=== PATIENT | male | born 1985 | race Caucasian/White ===

== ENCOUNTER 2017-05-28 16:25 | Emergency (ER) | payer SELFPAY ==
[2017-05-28 16:32] VITALS: BP 155/89
[2017-05-28] MEDS ORDERED: LIDOCAINE 1% INJ-PF (10 MG/ML) 30 ML SDV INJ ONE (16:47)
--- NOTE | 2017-05-28 17:14 | ER Document Report ---
ED Skin Rash/Insect Bite/Abscs - General Chief Complaint: Abscess Stated Complaint: ABSCESS TO TOP OF RIGHT HAND Time Seen by Provider: 05/28/17 16:41 Mode of Arrival: Ambulatory Information source: Patient Notes: Patient is a 31-year-old male who presents to the ER today for abscess to his right hand 3 days. Patient states that it has gotten more painful, swollen, red since that time. He denies any history of MRSA. States that he used to be an IV drug user but he does not know why he keeps getting abscesses now that he does not do IV drugs. He does have psoriasis and he thinks that that may be the reason. He denies any fevers or chills. TRAVEL OUTSIDE OF THE [place] IN LAST 30 DAYS: No - Related Data Allergies/Adverse Reactions: No Known Allergies Allergy (Verified 05/28/17 16:30) Past Medical History - General Information source: Patient - Social History Smoking Status: Current Every Day Smoker Chew tobacco use (# tins/day): - 30 Frequency of alcohol use: None Drug Abuse: None Family History: Reviewed & Not Pertinent Endocrine Medical History: Denies: Hx Diabetes Mellitus Type 1, Hx Diabetes Mellitus Type 2 Renal/ Medical History: Denies: Hx Peritoneal Dialysis Skin Medical History: Reports Hx Psoriasis Surgical Hx: Negative - Immunizations Hx Diphtheria, Pertussis, Tetanus Vaccination: Yes Review of Systems - Review of Systems Constitutional: No symptoms reported EENT: No symptoms reported Cardiovascular: No symptoms reported Respiratory: No symptoms reported Gastrointestinal: No symptoms reported Genitourinary: No symptoms reported Male Genitourinary: No symptoms reported Musculoskeletal: No symptoms reported Skin: See HPI Hematologic/Lymphatic: No symptoms reported Neurological/Psychological: No symptoms reported Physical Exam - Vital signs Vitals: Temp Pulse Resp BP Pulse Ox 97.7 F 90 18 155/89 H 97 05/28/17 16:31 05/28/17 16:31 05/28/17 16:31 05/28/17 16:31 05/28/17 16:31 - Notes Notes: PHYSICAL EXAMINATION: GENERAL: Well-appearing and in no acute distress. HEAD: Atraumatic, normocephalic. EYES: Pupils equal round and reactive to light, extraocular movements intact, sclera anicteric, conjunctiva are normal. NECK: Normal range of motion, supple without lymphadenopathy LUNGS: CTAB and equal. No wheezes rales or rhonchi. HEART: Regular rate and rhythm without murmurs EXTREMITIES: Normal range of motion, no pitting edema. No cyanosis. NEUROLOGICAL: Cranial nerves grossly intact. Normal sensory/motor exams. PSYCH: Normal mood, normal affect. SKIN: Warm, Dry, normal turgor, 3 cm in diameter abscess, erythematous, fluctuant to the dorsal right hand, tender to palpation, no drainage Course - Vital Signs Vital signs: Temp Pulse Resp BP Pulse Ox 97.7 F 90 18 155/89 H 97 05/28/17 16:31 05/28/17 16:31 05/28/17 16:31 05/28/17 16:31 05/28/17 16:31 Procedures - Incision and Drainage Right Dorsal Hand Time completed: 17:13 Type: Simple Anesthetic type: 1% Lidocaine mL's of anesthetic: 2 Blade size: 11 I&D procedure: Betadine prep applied Incision Method: Incision made by scalpel Amount/type of drainage: pus and blood Discharge - Discharge Clinical Impression: Abscess, hand Condition: Stable Disposition: HOME, SELF-CARE Instructions: Post Incision and Drainage, Trimethoprim-Sulfa ([facility]), Abscess ( [facility]) Additional Instructions: Return immediately for any new or worsening symptoms. Follow up with primary care provider, call tomorrow to make followup appointment. Prescriptions: Sulfamethoxazole/Trimethoprim [Bactrim Ds Tablet] 1 each PO BID #20 tablet Forms: Return to Work
== END 2017-05-28 17:37 | disposition home or self-care (01) ==
LOC: ER 16:25
PROC: 0H9FXZZ Drainage of Right Hand Skin, External Approach (ICD-10-PCS; principal; 2017-05-28)
DX: L02.511 Cutaneous abscess of right hand (principal); F17.210 Nicotine dependence, cigarettes, uncomplicated
CPT/HCPCS: 99283; 87070; 87205; 87075; 87077; 87186; 10060; J3490

== ENCOUNTER 2017-08-20 12:37 | Emergency (ER) | payer OTHER ==
--- NOTE | 2017-08-20 13:10 | ER Document Report ---
ED Medical Screen (RME) - General Chief Complaint: Groin Pain Stated Complaint: BACK INJURY Time Seen by Provider: 08/20/17 13:07 Notes: 31-year-old male patient reports onset last night work carrying some heavy items walking through the ground, he twisted and felt some discomfort in his right groin area. When he got home it was much worse and through the night the swelling in that general area has increased considerably. I have greeted and performed a rapid initial assessment of this patient. A comprehensive ED assessment and evaluation of the patient, analysis of test results and completion of the medical decision making process will be conducted by additional ED providers. TRAVEL OUTSIDE OF THE [place] IN LAST 30 DAYS: No - Related Data Allergies/Adverse Reactions: No Known Allergies Allergy (Verified 08/20/17 12:38) Past Medical History Endocrine Medical History: Denies: Hx Diabetes Mellitus Type 1, Hx Diabetes Mellitus Type 2 Renal/ Medical History: Denies: Hx Peritoneal Dialysis Skin Medical History: Reports Hx Psoriasis - Immunizations Hx Diphtheria, Pertussis, Tetanus Vaccination: Yes Physical Exam - Vital signs Vitals: Temp Pulse Resp BP Pulse Ox 98.1 F 80 18 140/87 H 96 08/20/17 12:52 08/20/17 12:52 08/20/17 12:52 08/20/17 12:52 08/20/17 12:52 Course - Vital Signs Vital signs: Temp Pulse Resp BP Pulse Ox 98.1 F 80 18 140/87 H 96 08/20/17 12:52 08/20/17 12:52 08/20/17 12:52 08/20/17 12:52 08/20/17 12:52
--- NOTE | 2017-08-20 14:40 | ER Document Report ---
ED General - General Chief Complaint: Groin Pain Stated Complaint: BACK INJURY Time Seen by Provider: 08/20/17 13:07 Mode of Arrival: Ambulatory Information source: Patient Notes: 31-year-old male presents with complaints of possible hernia right groin. Patient notes he was carrying heavy objects and felt pain worsen since yesterday Last bowel movement was yesterday which is normal for TRAVEL OUTSIDE OF THE [place] IN LAST 30 DAYS: No - HPI Onset: Yesterday Onset/Duration: Sudden Quality of pain: Achy Severity: Mild Pain Level: Denies Associated symptoms: Other Exacerbated by: Denies Relieved by: Denies Similar symptoms previously: No Recently seen / treated by doctor: No - Related Data Allergies/Adverse Reactions: No Known Allergies Allergy (Verified 08/20/17 12:38) Past Medical History - Social History Smoking Status: Current Every Day Smoker Cigarette use (# per day): Yes Chew tobacco use (# tins/day): No Smoking Education Provided: No Frequency of alcohol use: None Drug Abuse: None Family History: Reviewed & Not Pertinent Patient has suicidal ideation: No Patient has homicidal ideation: No Endocrine Medical History: Denies: Hx Diabetes Mellitus Type 1, Hx Diabetes Mellitus Type 2 Renal/ Medical History: Denies: Hx Peritoneal Dialysis Skin Medical History: Reports Hx Psoriasis - Immunizations Hx Diphtheria, Pertussis, Tetanus Vaccination: Yes Review of Systems - Review of Systems Notes: REVIEW OF SYSTEMS: CONSTITUTIONAL : Denies fever, chills, or sweats. Denies recent illness. EENT: Denies eye, ear, throat, or mouth pain or symptoms. Denies nasal or sinus congestion or discharge. Denies throat, tongue, or mouth swelling or difficulty swallowing. CARDIOVASCULAR: Denies chest pain. Denies palpitations or racing or irregular heart beat. Denies ankle edema. RESPIRATORY: Denies cough, cold, or chest congestion. Denies shortness of breath, difficulty breathing, or wheezing. GASTROINTESTINAL: Denies abdominal pain or distention. Denies nausea, vomiting , or diarrhea. Denies blood in vomitus, stools, or per rectum. Denies black, tarry stools. Denies constipation. Inguinal pain GENITOURINARY: Denies difficulty urinating, painful urination, burning, frequency, blood in urine, or discharge. MUSCULOSKELETAL: Denies back or neck pain or stiffness. Denies joint pain or swelling. SKIN: Extensive psoriasis HEMATOLOGIC : Denies easy bruising or bleeding. LYMPHATIC: Denies swollen, enlarged glands. NEUROLOGICAL: Denies confusion or altered mental status. Denies passing out or loss of consciousness. Denies dizziness or lightheadedness. Denies headache. Denies weakness or paralysis or loss of use of either side. Denies problems with gait or speech. Denies sensory loss, numbness, or tingling. Denies seizures. PSYCHIATRIC: Denies anxiety or stress. Denies depression, suicidal ideation, or homicidal ideation. ALL OTHER SYSTEMS REVIEWED AND NEGATIVE. Dictation was performed using [employer] recognition software PHYSICAL EXAMINATION: GENERAL: Well-appearing, well-nourished and in no acute distress. HEAD: Atraumatic, normocephalic. EYES: Pupils equal round and reactive to light, extraocular movements intact, sclera anicteric, conjunctiva are normal. ENT: Nares patent, oropharynx clear without exudates. Moist mucous membranes. NECK: Normal range of motion, supple without lymphadenopathy LUNGS: Breath sounds clear to auscultation bilaterally and equal. No wheezes rales or rhonchi. HEART: Regular rate and rhythm without murmurs ABDOMEN: Soft, nontender, nondistended abdomen. No guarding, no rebound. No masses appreciated. Musculoskeletal: Normal range of motion, no pitting or edema. No cyanosis. NEUROLOGICAL: Cranial nerves grossly intact. Normal speech, normal gait. Normal sensory, motor exams PSYCH: Normal mood, normal affect. SKIN: Extensive psoriasis noted, no hernia noted, a right inguinal inner thigh abscess with cellulitis noted Physical Exam - Vital signs Vitals: Temp Pulse Resp BP Pulse Ox 98.1 F 80 18 140/87 H 96 08/20/17 12:52 08/20/17 12:52 08/20/17 12:52 08/20/17 12:52 08/20/17 12:52 Course - Re-evaluation Re-evalutation: 08/20/17 14:39 u/s pending ot determine if there is an incisable abscess 08/20/17 16:02 Ultrasound is not does not note any abscess, patient's presentation is consistent with cellulitis, I will treat her for his psoriasis is well. Patient will be placed on antibiotics very strict return precautions for incision and drainage of this abscess if it does come to head After performing a Medical Screening Examination, I estimate there is LOW risk for OPEN FRACTURE, COMPARTMENT SYNDROME, TENDON RUPTURE, ACUTE NEUROVASCULAR INJURY, or RETAINED FOREIGN BODY, thus I consider the discharge disposition reasonable. Also, there is no evidence or peritonitis, sepsis, or toxicity. I have reevaluated this patient multiple times and no significant life threatening changes are noted. The patient and I have discussed the diagnosis and risks, and we agree with discharging home with close follow-up with the understanding that symptoms and presentations can change. We also discussed returning to the Emergency Department immediately if new or worsening symptoms occur. We have discussed the symptoms which are most concerning (e.g., changing or worsening pain, fever, numbness, weakness, cool or painful digits) that necessitate immediate return. - Vital Signs Vital signs: Temp Pulse Resp BP Pulse Ox 98.1 F 80 18 140/87 H 96 08/20/17 12:52 08/20/17 12:52 08/20/17 12:52 08/20/17 12:52 08/20/17 12:52 - Diagnostic Test Radiology reviewed: Image reviewed, Reports reviewed Discharge - Discharge Clinical Impression: Psoriasiform dermatitis Cellulitis Qualifiers: Site of cellulitis: extremity Site of cellulitis of extremity: lower extremity Laterality: right Qualified Code(s): L03.115 - Cellulitis of right lower limb Condition: Stable Disposition: HOME, SELF-CARE Instructions: Cellulitis ([facility]) Additional Instructions: Follow up with your physician tomorrow for further care or return to the ED IMMEDIATELY if symptoms worsen or new concerns occur. If you cannot afford to follow up with your primary care physician a list of low cost clinics have been provided at the end of your discharge papers as well. Prescriptions: Clindamycin HCl 300 mg PO Q6 #40 capsule Hydrocortisone [Hydrocortisone 1% Cream 28.35 gm] 28.35 applic TP ASDIR PRN #1 tube PRN Reason:
--- NOTE | 2017-08-20 15:11 | RADIOLOGY REPORT (SQ) ---
EXAM DESCRIPTION: KUB/ABDOMEN (SINGLE VIEW) COMPLETED DATE/TIME: 08/20/2017 2:36 pm REASON FOR STUDY: INGUINAL HERNIA COMPARISON: None. NUMBER OF VIEWS: One view. TECHNIQUE: Supine radiographic image of the abdomen acquired. LIMITATIONS: None. FINDINGS: BOWEL GAS PATTERN: Normal bowel gas pattern. No dilated loops. Moderate stool throughout the colon. CALCIFICATIONS: No suspicious calcifications. SOFT TISSUES: No gross mass or suggestion of organomegaly. HARDWARE: None in the abdomen. BONES: No acute fracture. No worrisome bone lesions. OTHER: No other significant finding. IMPRESSION: NO RADIOGRAPHIC EVIDENCE FOR ACUTE ABDOMINAL DISEASE. TECHNICAL DOCUMENTATION: JOB ID: [id number] [employer]- All Rights Reserved
--- NOTE | 2017-08-20 15:53 | RADIOLOGY REPORT (SQ) ---
EXAM DESCRIPTION: U/S NON-OB PELVIS LTD W/O DOP COMPLETED DATE/TIME: 08/20/2017 3:35 pm REASON FOR STUDY: right inguinal abscess COMPARISON: None. TECHNIQUE: Dynamic and static grayscale images acquired of the right inguinal region and recorded on PACS. Additional selected color Doppler and spectral images recorded. LIMITATIONS: None. FINDINGS: Patient has right inguinal pain. Ultrasound of the right inguinal region demonstrates mil d diffuse subcutaneous edema. No abscess. No focal findings. Incidental finding of a 1.2 x 1 cm ri ght inguinal lymph node without worrisome features IMPRESSION: Right inguinal cellulitis. No abscess identified. No hernia identified. TECHNICAL DOCUMENTATION: JOB ID: [id number] [employer]- All Rights Reserved
[2017-08-20 16:43] VITALS: BP 136/85
== END 2017-08-20 16:38 | disposition home or self-care (01) ==
LOC: ER 12:37
DX: L30.8 Other specified dermatitis (principal); L03.115 Cellulitis of right lower limb; R10.30 Lower abdominal pain, unspecified; X50.0XXA Overexertion from strenuous movement or load, initial encounter; F17.210 Nicotine dependence, cigarettes, uncomplicated
CPT/HCPCS: 74000; 76857; 99284